=== PATIENT | male | born 1945 | race Caucasian/White ===

== ENCOUNTER 2018-04-21 17:27 | Inpatient (IN) ==
[2018-04-21] MEDS ORDERED: 0.9 % Sodium Chloride 1,000 ML IVC ONE (17:56)
--- NOTE | 2018-04-21 18:17 | Emergency Department Note ---
Disposition Clinical Impression: Failure to thrive in adult, Generalized weakness Disposition: Admitted As Inpatient Condition: Fair Referrals: Chavez Smith, REPLANTER [Primary Care Provider] - Forms: ED Satisfaction Letter Time of Disposition: 20:37 Weakness HPI - General Chief complaint: ED Weakness Stated complaint: gen weakness Time Seen by Provider: 04/21/18 17:44 Source: patient, family, EMS Mode of arrival: EMS Limitations: no limitations Nursing Notes Reviewed: Yes Vital Signs Reviewed: Yes - History of Present Illness Pt Subjective Complaint: generalized weakness/fatigue Onset (ago): week(s) (3 weeks) Duration: constant, gradually worsening Location: generalized Pain Severity: none Pain Scale: 0 Worsens with: exertion Associated symptoms: Reports: easy bruising. Denies: chest pain, fever/chills - Related Data Home Medications Medication Instructions Recorded Confirmed Aspirin Enteric Coated [Aspirin EC] 81 mg PO DAILY 07/16/15 04/21/18 Bumetanide [Bumex] 1 mg PO DAILY 07/16/15 04/21/18 Gabapentin [Neurontin] 600 mg PO BID 07/16/15 04/21/18 Lisinopril [Zestril] 20 mg PO DAILY 07/16/15 04/21/18 Warfarin [Coumadin] 2 mg PO 1800 07/16/15 04/21/18 Carvedilol 3.125 mg PO BID 01/10/16 04/21/18 Sertraline [Zoloft] 50 mg PO DAILY 01/10/16 04/21/18 Previous Rx's Medication Instructions Recorded Albuterol Sulfate [Albuterol 2 puff IH Q4HR PRN #1 hfa.aer.ad 01/10/16 Inhaler] Amoxicillin [Amoxil] 500 mg PO Q8HR #30 capsule 01/10/16 predniSONE [PredniSONE] 20 mg PO DAILY #18 tablet 01/10/16 Allergies Allergy/AdvReac Type Severity Reaction Status Date / Time No Known Allergies Allergy Verified 07/16/15 15:23 All systems ED: reviewed and negative except as stated. Constitutional: Denies: fever, chills ENT ED: Denies: ear pain, throat pain, congestion Cardiovascular: Denies: chest pain, palpitations Respiratory: Reports: cough, dyspnea. Denies: wheezes, hemoptysis Gastrointestinal: Reports: abdominal pain, other (Loss of appetite) Genitourinary: Denies: hematuria Neurological: Reports: weakness (Generalized). Denies: headache Endocrine: Reports: fatigue Past Medical History - Past Medical History Attestation: Yes The following information was validated with the patient. Source: patient, old records reviewed, obtained from family, nursing notes reviewed Medical history: Reports: COPD, coronary artery disease, CVA, hypertension, other Surgical history: Reports: coronary bypass (CABG), LE stent(s) Psychiatric history: Reports: no psych history - Social History Smoking Status: Current some day smoker Smokeless Tobacco Status: Yes (occasional) Alcohol use: Reports: none Drug use: Reports: none Physical Exam - General Limitations: no limitations General appearance: alert, other (Appears weak and pale) - Head Head exam: atraumatic, normocephalic, normal inspection - Eye Eye exam: Present: PERRL, EOMI. Absent: scleral icterus, conjunctival injection - ENT ENT exam: mucous membranes dry, normal external ear exam - Neck Neck exam: Present: normal inspection, full ROM, trachea midline. Absent: meningismus - Chest Chest inspection: Present: normal inspection, symmetric chest wall rise. Absent : tenderness - Respiratory Respiratory exam: Present: normal lung sounds bilaterally. Absent: respiratory distress, wheezes - Cardiovascular Cardiovascular exam: Present: regular rate, normal rhythm, normal heart sounds - Abdominal Exam Abdominal exam: Present: soft, tenderness. Absent: distention Abdominal tenderness: Present: LUQ - Extremities Exam Extremities exam: Present: normal inspection. Absent: tenderness, pedal edema - Neurological Exam Neurological exam: Present: alert, oriented X3 - Psychiatric Psychiatric exam: Present: normal affect, normal mood - Skin Skin exam: Present: warm, dry. Absent: rash Course Course Narrative: Patient presents with generalized weakness is progressively worsening over the past 2-3 weeks with no abrupt foreign exchange student coordinator the past couple of days. He is not eating and drinking well. The reason that they came today was that the caregiver those with them left and now is alone. He thinks he needs to go back into a halfway. He was in a halfway about 14 years ago but is been home since then. He is not describing any focal infectious disease symptoms to me. He has a nonfocal neurologic examination. I am giving him some IV fluids. He looks dry. Laboratory workup initiated. Apparently he had an INR of 7 a few days ago and her holding his Coumadin. He has fallen since then. I am going to scan his head and scan his belly. Disposition will be based on diagnostic results and reevaluation. - Reevaluation(s) Reevaluation #1: Labs really do not show anything significant. CT head was fine. Chest x-ray is okay. So I do not have any clear indication as to what the cause of this patient's generalized weakness. However he clearly is too weak to go home. He is following all over the place. His got bumps and bruises and barrera all over himself. He has no other home to help take care of him. I the needs to be admitted to the hospital for failure to thrive and is probably did not need to require some sort of rehabilitation or halfway placement due to his inability to care for himself. I spoke with the hospitalist, Dr. Castro. He is accepted the patient for admission to the hospital. Avoid put orders in. Time: 20:35 Vital Signs Temperature 98.9 F 04/21/18 17:29 Pulse Rate 98 04/21/18 17:29 Respiratory Rate 18 04/21/18 17:29 Blood Pressure 143/100 04/21/18 17:29 O2 Sat by Pulse Oximetry 99 04/21/18 17:29 Temperature 98.9 F 04/21/18 17:29 Pulse Rate 97 04/21/18 20:23 Respiratory Rate 16 04/21/18 20:23 Blood Pressure 144/102 04/21/18 20:23 O2 Sat by Pulse Oximetry 100 04/21/18 20:23 Oxygen Delivery Oxygen Delivery Nasal Cannula Weakness - Medical Records Medical records reviewed: Yes I reviewed the patient's medical records. - Lab Data Lab results reviewed: Yes I reviewed the patient's lab results. Result diagrams: 04/21/18 18:07 04/21/18 18:07 Lab Results 04/21/18 04/21/18 04/21/18 Range/Units 18:07 18:07 18:07 WBC 4.7 (4.3-11.1) K/mcL RBC 4.55 (4.19-5.50) M/mcL Hgb 12.7 L (12.9-16.9) g/dL Hct 40.8 (37.5-50.1) % MCV 89.7 (83.0-100.0) fL MCH 27.9 L (28.0-33.3) pg MCHC 31.1 L (31.6-35.5) g/dL RDW 15.3 H (11.5-14.5) % Plt Count 110 L (140-400) K/mcL MPV 10.4 (9.4-12.4) fL Immature Gran % 0.2 (0-4) % Seg Neutrophils % 75.0 % Lymphocytes % 14.0 % Monocytes % 9.5 % Eosinophils % 1.1 % Basophils % 0.2 % Neutrophils # 3.5 (1.6-8.9) K/mcL Lymphocytes # 0.7 (0.6-4.6) K/mcL Monocytes # 0.4 (0.0-1.3) K/mcL Eosinophils # 0.1 (0.0-0.6) K/mcL Basophils # 0.0 (0.0-0.2) K/mcL PT 23.8 H (9.4-12.1) Seconds INR 2.2 APTT 40.3 H (26.0-36.0) Seconds Sodium 133 L (136-145) mEq/L Potassium 4.4 (3.5-5.1) mEq/L Chloride 96 L (98-107) mEq/L Carbon Dioxide 34 H (23-29) mEq/L BUN 14 (8-23) mg/dL Creatinine 1.02 (0.70-1.30) mg/dL Est GFR ( Amer) > 60 (> 60) Est GFR (Non-Af Amer) > 60 (> 60) BUN/Creatinine Ratio 14 (6-26) Glucose 91 (70-105) mg/dL Calculated Osmolality 276 L (280-300) Lactic Acid (0.5-2.2) mmol/L Calcium 8.4 L (8.6-10.3) mg/dL Total Bilirubin 1.4 H (0.3-1.0) mg/dL Direct Bilirubin 0.3 H (0.0-0.2) mg/dL Indirect Bilirubin 1.1 (0.0-1.2) mg/dL AST 22 (13-39) Units/L ALT 14 (7-52) Units/L Alkaline Phosphatase 94 (34-104) Units/L Troponin I < 0.03 (< 0.04) ng/mL B-Natriuretic Peptide (Less than 100) pg/mL Serum Total Protein 6.1 L (6.4-8.9) g/dL Albumin 3.2 L (3.5-5.7) g/dL Globulin 2.9 (2.4-3.5) g/dL Albumin/Globulin Ratio 1.1 (1.1-2.2) Urine Color (Yellow) Urine Clarity (Clear) Urine pH (5.0-8.0) pH Units Ur Specific [place] (1.010-1.025) Urine Protein (Neg-Trace) mg/dL Urine Glucose (UA) (Normal) mg/dL Urine Ketones (Negative) mg/dL Urine Blood (Negative) Urine Nitrite (Negative) Urine Bilirubin (Negative) Urine Urobilinogen (Normal) mg/dL Ur Leukocyte Esterase (Negative) Urine Microscopic RBC (0-3) per hpf Urine Microscopic WBC (0-3) per hpf Ur Squamous Epith Cells (None-Few) per lpf Urine Bacteria (None-Few) per hpf Ur Culture Indicated? (NO) 04/21/18 04/21/18 04/21/18 Range/Units 18:07 18:07 18:56 WBC (4.3-11.1) K/mcL RBC (4.19-5.50) M/mcL Hgb (12.9-16.9) g/dL Hct (37.5-50.1) % MCV (83.0-100.0) fL MCH (28.0-33.3) pg MCHC (31.6-35.5) g/dL RDW (11.5-14.5) % Plt Count (140-400) K/mcL MPV (9.4-12.4) fL Immature Gran % (0-4) % Seg Neutrophils % % Lymphocytes % % Monocytes % % Eosinophils % % Basophils % % Neutrophils # (1.6-8.9) K/mcL Lymphocytes # (0.6-4.6) K/mcL Monocytes # (0.0-1.3) K/mcL Eosinophils # (0.0-0.6) K/mcL Basophils # (0.0-0.2) K/mcL PT (9.4-12.1) Seconds INR APTT (26.0-36.0) Seconds Sodium (136-145) mEq/L Potassium (3.5-5.1) mEq/L Chloride (98-107) mEq/L Carbon Dioxide (23-29) mEq/L BUN (8-23) mg/dL Creatinine (0.70-1.30) mg/dL Est GFR ( Amer) (> 60) Est GFR (Non-Af Amer) (> 60) BUN/Creatinine Ratio (6-26) Glucose (70-105) mg/dL Calculated Osmolality (280-300) Lactic Acid 1.4 (0.5-2.2) mmol/L Calcium (8.6-10.3) mg/dL Total Bilirubin (0.3-1.0) mg/dL Direct Bilirubin (0.0-0.2) mg/dL Indirect Bilirubin (0.0-1.2) mg/dL AST (13-39) Units/L ALT (7-52) Units/L Alkaline Phosphatase (34-104) Units/L Troponin I (< 0.04) ng/mL B-Natriuretic Peptide 1871 H (Less than 100) pg/mL Serum Total Protein (6.4-8.9) g/dL Albumin (3.5-5.7) g/dL Globulin (2.4-3.5) g/dL Albumin/Globulin Ratio (1.1-2.2) Urine Color Yellow (Yellow) Urine Clarity Clear (Clear) Urine pH 7.0 (5.0-8.0) pH Units Ur Specific [place] 1.020 (1.010-1.025) Urine Protein 100 H (Neg-Trace) mg/dL Urine Glucose (UA) Normal (Normal) mg/dL Urine Ketones Negative (Negative) mg/dL Urine Blood Trace-intact H (Negative) Urine Nitrite Negative (Negative) Urine Bilirubin Negative (Negative) Urine Urobilinogen 2.0 H (Normal) mg/dL Ur Leukocyte Esterase Negative (Negative) Urine Microscopic RBC 0-3 (0-3) per hpf Urine Microscopic WBC 3-5 H (0-3) per hpf Ur Squamous Epith Cells Few (None-Few) per lpf Urine Bacteria Few (None-Few) per hpf Ur Culture Indicated? NO (NO) - Radiology Data Radiology results reviewed: Yes I reviewed the patient's radiology results. - EKG Data EKG attestation: Yes I reviewed and interpreted this EKG. EKG results narrative: Twelve-lead EKG performed at 1730 4 PM shows sinus rhythm at a rate of 97. Normal axis. Reasonable R wave progression across precordium. The Civic intraventricular conduction delay. Computer is reading secondary AV block but I do not believe that is what is going on here. He does have an inverted P- wave. No obvious acute ischemic changes.
[2018-04-21 18:21] LABS: Basophils % 0.2 %; Eosinophils # 0.1 K/mcL (0.0-0.6); Eosinophils % 1.1 %; Hematocrit 40.8 % (37.5-50.1); Hemoglobin 12.7 g/dL (12.9-16.9); Immature Granulocytes % 0.2 % (0-4); Lymphocytes # 0.7 K/mcL (0.6-4.6); Mean Corpuscular HGB Conc 31.1 g/dL (31.6-35.5); Mean Corpuscular Hemoglobin 27.9 pg (28.0-33.3); Mean Corpuscular Volume 89.7 fL (83.0-100.0); Mean Platelet Volume 10.4 fL (9.4-12.4); Monocytes # 0.4 K/mcL (0.0-1.3); Monocytes % 9.5 %; Neutrophils # 3.5 K/mcL (1.6-8.9); Platelet Count 110 K/mcL (140-400); Red Blood Count 4.55 M/mcL (4.19-5.50); Red Cell Distribution Width 15.3 % (11.5-14.5)
[2018-04-21 18:27] LABS: INR 2.2; Prothrombin Time 23.8 Seconds (9.4-12.1)
[2018-04-21 18:29] LABS: Activated Partial Thrombo Time 40.3 Seconds (26.0-36.0)
[2018-04-21 18:35] LABS: Alanine Aminotransferase 14 Units/L (7-52); Albumin 3.2 g/dL (3.5-5.7); Albumin/Globulin Ratio 1.1 (1.1-2.2); Alkaline Phosphatase 94 Units/L (34-104); Aspartate Amino Transferase 22 Units/L (13-39); BUN/Creatinine Ratio 14 (6-26); Bilirubin,Direct 0.3 mg/dL (0.0-0.2); Bilirubin,Indirect 1.1 mg/dL (0.0-1.2); Bilirubin,Total 1.4 mg/dL (0.3-1.0); Blood Urea Nitrogen 14 mg/dL (8-23); Calcium 8.4 mg/dL (8.6-10.3); Carbon Dioxide 34 mEq/L (23-29); Chloride 96 mEq/L (98-107); Globulin 2.9 g/dL (2.4-3.5); Glucose 91 mg/dL (70-105); Osmolality,Calculated 276 (280-300); Potassium 4.4 mEq/L (3.5-5.1); Sodium 133 mEq/L (136-145); Total Protein 6.1 g/dL (6.4-8.9); eGFR For African Americans > 60 (> 60); eGFR For Non-African Americans > 60 (> 60)
[2018-04-21 18:40] LABS: Troponin I < 0.03 ng/mL (< 0.04)
[2018-04-21 19:26] LABS: Bilirubin,Urine Negative (Negative); Blood,Urine Trace-intact (Negative); Clarity,Urine Clear (Clear); Color,Urine Yellow (Yellow); Glucose,Urine (UA) Normal (Normal); Ketones,Urine Negative (Negative); Leukocyte Esterase,Urine Negative (Negative); Nitrite,Urine Negative (Negative); Protein,Urine 100 mg/dL (Neg-Trace)
[2018-04-21 19:33] LABS: Bacteria,Urine Few per hpf (None-Few); RBC,Urine 0-3 per hpf (0-3); Squamous Epithelial Cell,Urine Few per lpf (None-Few)
[2018-04-21] MEDS ORDERED: Naloxone 0.4 MG/ML INJ IVP PRN (21:55)
[2018-04-21] MEDS: Gabapentin 300 MG CAPSULE PO SCH (23:19)
[2018-04-21] MEDS: *HR* LORazepam 0.5 MG TABLET PO PRN (23:19)
[2018-04-22] MEDS: Gabapentin 300 MG CAPSULE PO SCH ×2 (09:27→20:39)
[2018-04-22] MEDS: Lisinopril 20 MG TABLET PO SCH (09:27)
[2018-04-22] MEDS: Bumetanide 1 MG TABLET PO SCH (09:27)
[2018-04-22] MEDS: Aspirin Enteric Coated 81 MG Tablet PO SCH (09:27)
--- NOTE | 2018-04-22 11:06 | Internal Med History&Physical ---
Date of Encounter: 04/22/18 Time of Encounter: 10:25 Assessment and Plan (1) Heart failure Current visit: Yes Status: Acute Will order echocardiogram to further evaluate. Continue Bumex, lisinopril, and Coreg. Qualifiers: Heart failure type: unspecified Heart failure chronicity: acute on chronic Qualified Code(s): I50.9 - Heart failure, unspecified (2) Left kidney mass Current visit: Yes Status: Acute CT showed 0.8 cm left kidney abnormality. Will order renal protocol MRI. (3) Multiple falls Current visit: Yes Status: Acute Will order PT and OT evaluation. (4) Peripheral neuropathy Current visit: Yes Status: Acute Will order TSH and B12 level. Qualifiers: Peripheral neuropathy type: polyneuropathy, unspecified Qualified Code(s): G62.9 - Polyneuropathy, unspecified (5) Anemia Current visit: Yes Status: Acute Will order anemia testing in a.m. Qualifiers: Anemia type: unspecified type Qualified Code(s): D64.9 - Anemia, unspecified (6) Thrombocytopenia Current visit: Yes Status: Acute Duration unknown. Not present on 01/10/2016 labs. Will monitor. (7) COPD (chronic obstructive pulmonary disease) Current visit: No Status: Chronic Continue albuterol MDI as needed. Qualifiers: COPD type: unspecified COPD Qualified Code(s): J44.9 - Chronic obstructive pulmonary disease, unspecified (8) Hypertension Current visit: No Status: Chronic Continue Coreg and lisinopril. Monitor blood pressure. Qualifiers: Hypertension type: essential hypertension Qualified Code(s): I10 - Essential (primary) hypertension (9) Atrial fibrillation Current visit: No Status: Chronic Continue Coumadin and monitor PT/INR. Qualifiers: Atrial fibrillation type: paroxysmal Qualified Code(s): I48.0 - Paroxysmal atrial fibrillation (10) ASHD (arteriosclerotic heart disease) Current visit: No Status: Acute Continue aspirin and Coreg. Internal Medicine - H&P: HPI Chief complaint: Weakness and dyspnea Admitted From: Emergency Dept Plans for Post Hospital Care: Home History of present illness: Mr. Lockett is a 72 year old male who came to emergency room stating he had progressive weakness for several weeks including several falls in the past few months. He has had increasing dyspnea on exertion for 3-4 months. He has recently noticed edema in his legs. He was brought to emergency room and evaluated and found to have exacerbation of heart failure and anemia. He was admitted to [facility] floor for ongoing care needs. His cardiovascular history is pertinent for hypertension and past diagnosis of heart failure. He does not recall if an echocardiogram has been done. He has had atrial fib/flutter in the past. He has known ASHD status post ME with 3 vessel CABG 2002. He has had 6 stents placed. He reports an EST approximately 2009 which was negative. He denies peripheral vascular disease, DVT or pulmonary embolus. Past Med Surg Social Fam HX - Past Medical History Medical history: COPD, coronary artery disease, CVA, hypertension, other Psychiatric history: no psych history - Past Surgical History Surgical History: coronary bypass (CABG), LE stent(s) - Social History Smoking Status: Current some day smoker Smokeless Tobacco Status: Yes (occasional) Alcohol use: none Drug use: none Internal Medicine - H&P: Meds Aspirin Enteric Coated [Aspirin EC] 81 mg PO DAILY 07/16/15 [History] Bumetanide [Bumex] 1 mg PO DAILY 07/16/15 [History] Gabapentin [Neurontin] 600 mg PO BID 07/16/15 [History] Lisinopril [Zestril] 20 mg PO DAILY 07/16/15 [History] Warfarin [Coumadin] 2 mg PO 1800 07/16/15 [History] Albuterol Sulfate [Albuterol Inhaler] 2 puff IH Q4HR PRN #1 hfa.aer.ad 01/10/16 [Rx] Amoxicillin [Amoxil] 500 mg PO Q8HR #30 capsule 01/10/16 [Rx] Carvedilol 3.125 mg PO BID 01/10/16 [History] Sertraline [Zoloft] 50 mg PO DAILY 01/10/16 [History] predniSONE [PredniSONE] 20 mg PO DAILY #18 tablet 01/10/16 [Rx] 3 Allergy/AdvReac Type Severity Reaction Status Date / Time No Known Allergies Allergy Verified 07/16/15 15:23 All Systems PM: A 10-system review of systems was performed and is negative for pertinent findings except as documented above in the HPI. Review of systems: Gen.: His weight has been stable at approximately 103 kg since the June 2015 [facility] hospitalization.. Cardiovascular: As per history of present illness. Respiratory: He states he smoked since age 14 but quit 2 weeks ago. He smoked up to 3 packs per day. He had PFTs approximately [address] [facility] and was told he had COPD. He wears oxygen 24/7 at 2.5-3 L/m. He has not been tested for MARITZA. GI: He denies trouble with his liver gallbladder or exocrine pancreas. : He had hematuria in the past that has resolved. He has been told he has BPH. He denies any other renal or bladder disorders Neurologic: He claims he has had "mini strokes" in the past as well as a larger CVA left him transiently with right-sided weakness in 2002 during the time of his CABG surgery. He has not had seizures. He reports peripheral neuropathy of unknown etiology. Endocrine: He has hyperlipidemia but denies diabetes or thyroid disease. Hematology/oncology: he denies any blood disorders cancers or anemia Psychiatric: He has anxiety but no significant depression or other mental health issues. Musculoskeletal. He has DJD no known gout or osteoporosis. - Constitutional Vitals: Temp Pulse Resp BP Pulse Ox 97.8 F 97 18 121/90 99 04/22/18 10:06 04/22/18 10:06 04/22/18 10:06 04/22/18 10:06 04/22/18 10:06 Exam: Gen.: He is a well-developed well-nourished male lying in bed who appears in no severe distress HEENT: Head shows ecchymosis on his forehead and face from recent falls. Eyes: There is no scleral icterus. Mouth: Mucosa is moist Neck: There is no thyromegaly or adenopathy noted. Heart: Regular with rate approximately 100/m. There are frequent ectopics heard. No murmurs are heard. Lungs: No wheezes or crackles are heard Abdomen: Soft and nontender. No masses or guarding noted. He has a large ventral hernia to the left of midline in the epigastric area which he reports developed after CABG surgery. Extremities: There is no cyanosis or clubbing noted. There is 1+ edema of the dorsum of feet and lower anterior shins bilaterally. Dorsalis pedis and posterior tibial pulses are nonpalpable. Has onychomycosis of most of his toenails. He has mild DJD changes of his hands. Neurologic: Mental status: He is talkative and a good historian. Cranial nerves : Smile is symmetric. Forehead wrinkles bilaterally. Tongue protrudes midline. EOMI. Motor: There is no pronator drift. Cerebellar: Finger to nose is intact bilaterally. Skin: Warm and dry. He has few scattered ecchymosis on his extremities. Internal Med - H&P Results - Labs CBC & Chem 7: 04/21/18 18:07 04/21/18 18:07 Labs: Cardiac Enzymes 04/22/18 04/22/18 Range/Units 00:04 05:52 Troponin I < 0.03 < 0.03 (< 0.04) ng/mL - VTE Reasons for not Prescribing Prophylaxis: Not indicated-Anticoagulated or INR therapeutic
[2018-04-22] MEDS ORDERED: Gadolinium Contrast Agent (WT Based) IV PRN (11:22)
[2018-04-22] MEDS: *HR* Warfarin 2 MG TABLET PO SCH (17:34)
[2018-04-22] MEDS: *HR* LORazepam 0.5 MG TABLET PO PRN (20:39)
[2018-04-23 07:20] LABS: Basophils % 0.1 %; Eosinophils # 0.1 K/mcL (0.0-0.6); Eosinophils % 1.1 %; Hematocrit 41.8 % (37.5-50.1); Hemoglobin 12.9 g/dL (12.9-16.9); Immature Granulocytes % 0.4 % (0-4); Lymphocytes # 0.8 K/mcL (0.6-4.6); Mean Corpuscular HGB Conc 30.9 g/dL (31.6-35.5); Mean Corpuscular Hemoglobin 28.2 pg (28.0-33.3); Mean Corpuscular Volume 91.5 fL (83.0-100.0); Mean Platelet Volume 9.5 fL (9.4-12.4); Monocytes # 0.7 K/mcL (0.0-1.3); Neutrophils # 5.9 K/mcL (1.6-8.9); Red Blood Count 4.57 M/mcL (4.19-5.50); Red Cell Distribution Width 15.6 % (11.5-14.5); Segmented Neutrophils % 78.4 %
[2018-04-23 07:23] LABS: Platelet Count 91 K/mcL (140-400)
[2018-04-23 07:39] LABS: BUN/Creatinine Ratio 13 (6-26); Blood Urea Nitrogen 15 mg/dL (8-23); Calcium 8.2 mg/dL (8.6-10.3); Carbon Dioxide 35 mEq/L (23-29); Chloride 96 mEq/L (98-107); Glucose 91 mg/dL (70-105); Magnesium 1.7 mg/dL (1.6-2.6); Osmolality,Calculated 274 (280-300); Potassium 4.7 mEq/L (3.5-5.1); Sodium 132 mEq/L (136-145); eGFR For African Americans > 60 (> 60); eGFR For Non-African Americans > 60 (> 60)
[2018-04-23 07:53] LABS: Thyroid Stimulating Hormone 3.921 mcIU/mL (0.340-5.600)
[2018-04-23] MEDS: Lisinopril 20 MG TABLET PO SCH (08:26)
[2018-04-23] MEDS: Aspirin Enteric Coated 81 MG Tablet PO SCH (09:01)
[2018-04-23] MEDS: Gabapentin 300 MG CAPSULE PO SCH ×2 (09:01→21:00)
[2018-04-23] MEDS: Bumetanide 1 MG TABLET PO SCH (09:01)
[2018-04-23 09:47] LABS: % Iron Saturation 32 % (20-55); Ferritin 60 ng/ml (20-250); Iron 90 mcg/dL (65-175); Transferrin 202 mg/dL (203-362)
[2018-04-23 10:12] LABS: Folate 12.5 ng/mL (3.0-16.0)
--- NOTE | 2018-04-23 11:22 | Internal Med Progress Note ---
Date of Encounter: 04/23/18 Time of Encounter: 11:15 - Assessment and plan (1) Heart failure Current Visit: Yes Status: Acute Assessment and plan: April 23. Echocardiogram will be done later today. Continue Bumex, lisinopril, and Coreg. Qualifiers: Heart failure type: unspecified Heart failure chronicity: acute on chronic Qualified Code(s): I50.9 - Heart failure, unspecified (2) Left kidney mass Current Visit: Yes Status: Acute Assessment and plan: April 23. MRI will be done tomorrow morning. (3) Multiple falls Current Visit: Yes Status: Acute Assessment and plan: April 23. PT and OT evaluations have been ordered. (4) Peripheral neuropathy Current Visit: Yes Status: Acute Assessment and plan: April 23. TSH and B12 levels are normal. Qualifiers: Peripheral neuropathy type: polyneuropathy, unspecified Qualified Code(s): G62.9 - Polyneuropathy, unspecified (5) Anemia Current Visit: Yes Status: Acute Assessment and plan: April 23. Hemoglobin improved to normal at 12.9. Anemia testing unremarkable. Qualifiers: Anemia type: unspecified type Qualified Code(s): D64.9 - Anemia, unspecified (6) Thrombocytopenia Current Visit: Yes Status: Acute Assessment and plan: April 23. Platelet count slightly lower at 91K. Continue to monitor. (7) COPD (chronic obstructive pulmonary disease) Current Visit: No Status: Chronic Assessment and plan: April 23. Continue albuterol MDI as needed. Qualifiers: COPD type: unspecified COPD Qualified Code(s): J44.9 - Chronic obstructive pulmonary disease, unspecified (8) Hypertension Current Visit: No Status: Chronic Assessment and plan: April 23. Blood pressure significantly decreased and now borderline hypotensive. Hold Coreg and lisinopril and monitor.. Qualifiers: Hypertension type: essential hypertension Qualified Code(s): I10 - Essential (primary) hypertension (9) Atrial fibrillation Current Visit: No Status: Chronic Assessment and plan: April 23. Continue Coumadin and monitor PT/INR. Qualifiers: Atrial fibrillation type: paroxysmal Qualified Code(s): I48.0 - Paroxysmal atrial fibrillation (10) ASHD (arteriosclerotic heart disease) Current Visit: No Status: Acute Assessment and plan: April 23. Continue aspirin and (BP permitting) Coreg. - Subjective Interval history: April 23. He has no new complaints. He reports his dyspnea has slightly lessened. - Constitutional Vitals: Temp Pulse Resp BP Pulse Ox 98.3 F 95 17 102/71 94 04/23/18 10:00 04/23/18 10:00 04/23/18 10:00 04/23/18 10:00 04/23/18 06:00 Exam: He is lying comfortably in bed and appears in no acute distress. His affect is overall cheerful. I reviewed his medications. I discussed pertinent lab results with him. Internal Medicine: Result - Labs CBC & Chem 7: 04/23/18 07:15 04/23/18 07:15 Labs: Short CBC 04/23/18 Range/Units 07:15 WBC 7.5 D (4.3-11.1) K/mcL Hgb 12.9 (12.9-16.9) g/dL Hct 41.8 (37.5-50.1) % Plt Count 91 L (140-400) K/mcL Neutrophils # 5.9 (1.6-8.9) K/mcL BMP 04/23/18 07:15 Sodium 132 L Potassium 4.7 Chloride 96 L Carbon Dioxide 35 H BUN 15 Creatinine 1.12 Glucose 91 Calcium 8.2 L - ABG Interpretation ABG results: PT/INR, D-dimer PT 23.8 Seconds (9.4-12.1) H 04/21/18 18:07 - VTE Reasons for not Prescribing Prophylaxis: Not indicated-Anticoagulated or INR therapeutic Consult Discharge Plan - Plan Referrals: Chavez Smith, ELECTRICAL DISCHARGE MACHINE OPERATOR [Primary Care Provider] - 1 week
[2018-04-23] MEDS: *HR* Warfarin 2 MG TABLET PO SCH (17:31)
[2018-04-23] MEDS: *HR* LORazepam 0.5 MG TABLET PO PRN ×2 (17:33→22:43)
--- NOTE | 2018-04-24 06:58 | Electrocardiograph Report ---
[address] [place], [place] [address] Test Date: 2018-04-21 Pat Name: Fabian Lockett Department: [id number] Room: [facility] Gender: M Mother Repairer: : 1945 Requested By: Stephen Phelan Order Number: [id number] Reading MD: Nathan Tran Measurements Intervals [place] Rate: 97 P: PA: 0 QRS: 22 QRSD: 142 T: 12 QT: 423 QTc: 478 Interpretive Statements SINUS RHYTHM IVCD Electronically Signed On 04-24-2018 6:56:36 EDT by Nathan Tran
[2018-04-24 06:59] LABS: BUN/Creatinine Ratio 20 (6-26); Blood Urea Nitrogen 19 mg/dL (8-23); Calcium 8.3 mg/dL (8.6-10.3); Carbon Dioxide 34 mEq/L (23-29); Chloride 92 mEq/L (98-107); Glucose 87 mg/dL (70-105); Osmolality,Calculated 268 (280-300); Sodium 128 mEq/L (136-145); eGFR For African Americans > 60 (> 60); eGFR For Non-African Americans > 60 (> 60)
[2018-04-24] MEDS: Gabapentin 300 MG CAPSULE PO SCH ×2 (10:13→20:45)
[2018-04-24] MEDS: Aspirin Enteric Coated 81 MG Tablet PO SCH (10:14)
[2018-04-24] MEDS: Bumetanide 1 MG TABLET PO SCH (10:14)
[2018-04-24] MEDS ORDERED: *HR* LORazepam 0.5 MG TABLET PO PRN (10:34)
[2018-04-24] MEDS ORDERED: Gabapentin 300 MG CAPSULE PO SCH (10:45)
--- NOTE | 2018-04-24 10:48 | Internal Med Progress Note ---
Date of Encounter: 04/24/18 Time of Encounter: 10:25 - Assessment and plan (1) Heart failure Current Visit: Yes Status: Acute Assessment and plan: April 23. Echocardiogram will be done later today. Continue Bumex, lisinopril, and Coreg. April 24. The echo showed LVEF of 25-30%. There was dilation of both RV and LV at 5.70 cm. Interventricular septum and posterior wall thickness measurements were 1.10 and 0.90 cm respectively. There was moderate tricuspid regurgitation. Diastolic function was not mentioned. Will add Lanoxin and isosorbide. We will reduce lisinopril dose because of hypotension. Qualifiers: Heart failure type: unspecified Heart failure chronicity: acute on chronic Qualified Code(s): I50.9 - Heart failure, unspecified (2) Left kidney mass Current Visit: Yes Status: Acute Assessment and plan: April 23. MRI will be done tomorrow morning. April 24. The 0.9 cm lesion seen on CT scan was consistent with hemorrhagic cyst. There was an adjacent 1.5 x 0.9 cm complex cyst with a thin internal septation. There was a 4.0 cm infrarenal abdominal aortic aneurysm. (3) Multiple falls Current Visit: Yes Status: Acute Assessment and plan: April 23. PT and OT evaluations have been ordered. April 24. Continue therapy interventions. Anticipate discharge to SNF tomorrow. (4) Peripheral neuropathy Current Visit: Yes Status: Acute Assessment and plan: April 23. TSH and B12 levels are normal. Qualifiers: Peripheral neuropathy type: polyneuropathy, unspecified Qualified Code(s): G62.9 - Polyneuropathy, unspecified (5) Anemia Current Visit: Yes Status: Acute Assessment and plan: April 23. Hemoglobin improved to normal at 12.9. Anemia testing unremarkable. Qualifiers: Anemia type: unspecified type Qualified Code(s): D64.9 - Anemia, unspecified (6) Thrombocytopenia Current Visit: Yes Status: Acute Assessment and plan: April 23. Platelet count slightly lower at 91K. Continue to monitor. (7) COPD (chronic obstructive pulmonary disease) Current Visit: No Status: Chronic Assessment and plan: April 23. Continue albuterol MDI as needed. Qualifiers: COPD type: unspecified COPD Qualified Code(s): J44.9 - Chronic obstructive pulmonary disease, unspecified (8) Hypertension Current Visit: No Status: Chronic Assessment and plan: April 23. Blood pressure significantly decreased and now borderline hypotensive. Hold Coreg and lisinopril and monitor.. Qualifiers: Hypertension type: essential hypertension Qualified Code(s): I10 - Essential (primary) hypertension (9) Atrial fibrillation Current Visit: No Status: Chronic Assessment and plan: April 23. Continue Coumadin and monitor PT/INR. April 24. Heart was regular today at rate 100/m. Will continue Coreg, Coumadin, aspirin, and add Lanoxin for rate control and heart failure. Qualifiers: Atrial fibrillation type: paroxysmal Qualified Code(s): I48.0 - Paroxysmal atrial fibrillation (10) ASHD (arteriosclerotic heart disease) Current Visit: No Status: Acute Assessment and plan: April 23. Continue aspirin and (BP permitting) Coreg. April 24. Will add isosorbide as per above. - Subjective Interval history: April 23. He has no new complaints. He reports his dyspnea has slightly lessened. April 24. He has no new complaints - Constitutional Vitals: Temp Pulse Resp BP Pulse Ox 98.3 F 96 17 106/79 97 04/24/18 00:00 04/24/18 00:00 04/24/18 07:50 04/24/18 07:50 04/24/18 07:50 Exam: He is resting comfortably in bed and appears in no acute distress. He states his dyspnea has lessened. He agrees he should go to a SNF for ongoing care needs. Extremities show no edema. I reviewed his MRI and echocardiogram report. I reviewed his lab results. Internal Medicine: Result - Labs CBC & Chem 7: 04/23/18 07:15 04/24/18 06:20 Labs: BMP 04/24/18 06:20 Sodium 128 L Potassium 4.0 Chloride 92 L Carbon Dioxide 34 H BUN 19 Creatinine 0.93 Glucose 87 Calcium 8.3 L - ABG Interpretation ABG results: PT/INR, D-dimer PT 23.8 Seconds (9.4-12.1) H 04/21/18 18:07 - Impressions Impressions Abdomen MRI 04/24/18 11:22 IMPRESSION: 1. A 0.9 cm lesion seen on earlier CT is most compatible with a hemorrhagic cyst (Bosniak II). There is also an adjacent 1.5 x 0.9 cm complex cyst with a thin internal septation (Bosniak II). 2. A 4.0 cm infrarenal abdominal aortic aneurysm. 3. Anasarca. D/ / 04/24/2018 09:54:26 Maricel Clark MD / jennifer Interpreting Provider: Maricel Clark MD - VTE Reasons for not Prescribing Prophylaxis: Not indicated-Anticoagulated or INR therapeutic Consult Discharge Plan - Plan Referrals: Chavez Smith, RN [facility] [Primary Care Provider] - 1 week
[2018-04-24] MEDS: Isosorbide MONOnitrate (24 HR) 30 MG TAB.ER.24H PO SCH (15:03)
[2018-04-24] MEDS: *HR* Digoxin 0.125 MG TABLET PO SCH (15:03)
[2018-04-24] MEDS: *HR* Warfarin 2 MG TABLET PO SCH (18:22)
[2018-04-25 07:34] VITALS: BP 129/89
--- NOTE | 2018-04-25 09:23 | Discharge Summary ---
Date of Encounter: 04/25/18 Time of Encounter: 09:10 - Discharge Diagnosis (1) Heart failure Priority: Primary Status: Acute Qualifiers: Heart failure type: unspecified Heart failure chronicity: acute on chronic Qualified Code(s): I50.9 - Heart failure, unspecified (2) Left kidney mass Priority: Secondary Status: Acute (3) Multiple falls Priority: Secondary Status: Acute (4) Peripheral neuropathy Priority: Secondary Status: Chronic Qualifiers: Peripheral neuropathy type: polyneuropathy, unspecified Qualified Code(s): G62.9 - Polyneuropathy, unspecified (5) Anemia Priority: Secondary Status: Acute Qualifiers: Anemia type: unspecified type Qualified Code(s): D64.9 - Anemia, unspecified (6) Thrombocytopenia Priority: Secondary Status: Acute (7) COPD (chronic obstructive pulmonary disease) Priority: Secondary Status: Chronic Qualifiers: COPD type: unspecified COPD Qualified Code(s): J44.9 - Chronic obstructive pulmonary disease, unspecified (8) Hypertension Priority: Secondary Status: Chronic Qualifiers: Hypertension type: essential hypertension Qualified Code(s): I10 - Essential (primary) hypertension (9) Atrial fibrillation Priority: Secondary Status: Chronic Qualifiers: Atrial fibrillation type: paroxysmal Qualified Code(s): I48.0 - Paroxysmal atrial fibrillation (10) ASHD (arteriosclerotic heart disease) Priority: Secondary Status: Acute Hospital course: Mr. Lockett is a 72 year old male who came to emergency room stating he had progressive weakness for several weeks including several falls in the past few months. He has had increasing dyspnea on exertion for 3-4 months. He has recently noticed edema in his legs. He was brought to emergency room and evaluated and found to have exacerbation of heart failure and anemia. He was admitted to [facility] for ongoing care needs. Initial orders were written by the emergency room physician. I saw him on April 22 and performed a history and physical. An echocardiogram was ordered to further evaluate heart failure. The echo showed LVEF of 25-30%. There was dilation of both RV and LV at 5.70 cm. Interventricular septum and posterior wall thickness measurements were 1.10 and 0.90 cm respectively. There was moderate tricuspid regurgitation. Diastolic function was not mentioned. He was given Lanoxin and isosorbide. Coreg was continued in lisinopril dose was slightly reduced because of hypotension. He had clinical improvement with BN peptide decreasing to 746 by 04/24/2018. MRI renal protocol was done to further evaluate possible left kidney mass. The 0.9 cm lesion seen on CT scan was consistent with hemorrhagic cyst. There was an adjacent 1.5 x 0.9 cm complex cyst with a thin internal septation. There was a 4.0 cm infrarenal abdominal aortic aneurysm. Physical therapy and occupational therapy evaluations with ongoing interventions were done for patient's multiple falls with weakness. It was felt he would benefit from SNF placement. He was agreeable to go to [place]. Peripheral neuropathy evaluation showed normal TSH and B12 levels. Anemia testing showed no factor deficiency. Hemoglobin normalized to 12.9 by . Platelet count decreased to 91,000. This will be monitored at the half-way. There were no new problems and on April 25 arrangements were complete for him to be discharged to [facility] for ongoing care needs. I will follow with him there. - Time Spent with Patient Total time spent providing and/or coordinating discharge services: - Discharge Medications Prescriptions: Gabapentin [Neurontin] 300 mg PO BID 30 Days #60 capsule Home Medications: Aspirin Enteric Coated [Aspirin EC] 81 mg PO DAILY 07/16/15 [History] Bumetanide [Bumex] 1 mg PO DAILY 07/16/15 [History] Albuterol Sulfate [Albuterol Inhaler] 2 puff IH Q4HR PRN #1 hfa.aer.ad 01/10/16 [Rx] Carvedilol 3.125 mg PO BID 01/10/16 [History] Sertraline [Zoloft] 50 mg PO DAILY 01/10/16 [History] Digoxin [Lanoxin] 0.125 mg PO DAILY tablet 04/25/18 [Rx] Gabapentin [Neurontin] 300 mg PO BID 30 Days #60 capsule 04/25/18 [Rx] Isosorbide MONOnitrate (24 HR) [Imdur] 30 mg PO DAILY tab.er.24h 04/25/18 [Rx] Lisinopril [Zestril] 10 mg PO DAILY tablet 04/25/18 [Rx] Warfarin [Coumadin] 2 mg PO 1800 tablet 04/25/18 [Rx] Allergies/Adverse Reactions: 3 Allergy/AdvReac Type Severity Reaction Status Date / Time No Known Allergies Allergy Verified 07/16/15 15:23 Date of admission: 04/22/18 11:25 Primary care physician: Chavez Smith CNP - Constitutional Vitals: Temp Pulse Resp BP Pulse Ox 97.7 F 95 18 129/89 97 04/25/18 07:33 04/25/18 07:33 04/25/18 07:33 04/25/18 07:33 04/25/18 07:33 - Patient Status Disposition: Transfer SNF Condition: Fair - Discharge Instructions - Diet and Activity Activity: as per physical therapy Diet: regular diet - VTE Reasons for not Prescribing Prophylaxis: Not indicated-Anticoagulated or INR therapeutic
--- NOTE | 2018-04-25 09:30 | Physician Discharge Referral ---
ExtendedCare Referral Info Transfer To: [facility] Provider in Charge: Matthew Provider in Charge after Transfer: PCP [facility]) Institutional Level of Care: Skilled - Diagnosis (1) Heart failure Priority: Primary Status: Acute (2) Left kidney mass Priority: Secondary Status: Acute (3) Multiple falls Priority: Secondary Status: Acute (4) Peripheral neuropathy Priority: Secondary Status: Chronic (5) Anemia Priority: Secondary Status: Acute (6) Thrombocytopenia Priority: Secondary Status: Acute (7) COPD (chronic obstructive pulmonary disease) Priority: Secondary Status: Chronic (8) Hypertension Priority: Secondary Status: Chronic (9) Atrial fibrillation Priority: Secondary Status: Chronic (10) ASHD (arteriosclerotic heart disease) Priority: Secondary Status: Acute Prognosis: Fair Aware of Diagnosis: Patient, Family Aware of Prognosis: Patient, Family - Transfer Medications Prescriptions: Gabapentin [Neurontin] 300 mg PO BID 30 Days #60 capsule Home Medications: Aspirin Enteric Coated [Aspirin EC] 81 mg PO DAILY 07/16/15 [History] Bumetanide [Bumex] 1 mg PO DAILY 07/16/15 [History] Albuterol Sulfate [Albuterol Inhaler] 2 puff IH Q4HR PRN #1 hfa.aer.ad 01/10/16 [Rx] Carvedilol 3.125 mg PO BID 01/10/16 [History] Sertraline [Zoloft] 50 mg PO DAILY 01/10/16 [History] Digoxin [Lanoxin] 0.125 mg PO DAILY tablet 04/25/18 [Rx] Gabapentin [Neurontin] 300 mg PO BID 30 Days #60 capsule 04/25/18 [Rx] Isosorbide MONOnitrate (24 HR) [Imdur] 30 mg PO DAILY tab.er.24h 04/25/18 [Rx] Lisinopril [Zestril] 10 mg PO DAILY tablet 04/25/18 [Rx] Warfarin [Coumadin] 2 mg PO 1800 tablet 04/25/18 [Rx] Allergies/Adverse Reactions: 3 Allergy/AdvReac Type Severity Reaction Status Date / Time No Known Allergies Allergy Verified 07/16/15 15:23 - Respiratory Orders Smoking Cessation: Smoking cessation has been advised. For more information, call the [place] Tobacco Quit Line at 3-099-NNZU-NOW. - Lab Orders Lab Orders: Other (include drug levels w/frequency) (CBC with differential, magnesium, dig level, BMP, BNP peptide in 5 days) - Rehabiliation Orders Rehab Potential: Fair Rehab Orders: Evaluation for Physical Therapy, Evaluation for Occupational Therapy - Diet Orders Regular CERTIFICATION: I certify that the transfer of the above named patient to an Extended Care Facility is necessary for the continuing treatment of the diagnosis listed. The above information is true and accurate reflection of patient's current condition. Confidential - Redisclosure prohibited without a patient's written consent.
[2018-04-25] MEDS: Aspirin Enteric Coated 81 MG Tablet PO SCH (09:37)
[2018-04-25] MEDS: Bumetanide 1 MG TABLET PO SCH (09:37)
[2018-04-25] MEDS: *HR* Digoxin 0.125 MG TABLET PO SCH (09:38)
[2018-04-25] MEDS: Gabapentin 300 MG CAPSULE PO SCH (09:38)
[2018-04-25] MEDS: Isosorbide MONOnitrate (24 HR) 30 MG TAB.ER.24H PO SCH (09:39)
== END 2018-04-25 13:00 | DRG 292 ==
LOC: EMEROOPIK 17:27 → INPPIK 17:27
PROVIDERS: ADMIT Internal Medicine; ATTEND Internal Medicine